=== PATIENT | female | born 1990 | race Caucasian/White ===

== ENCOUNTER 2017-08-27 17:38 | Emergency (ER) | payer OTHER ==
[2017-08-27] MEDS ORDERED: Ketorolac Tromethamine 30 MG/ML VIAL ONE (18:06)
[2017-08-27 18:33] LABS: BHCG - Serum Negative (NEGATIVE); Pregs Control Background? CLEAR/WHITE (CLR/WHITE); Pregs Control Bar Appear? YES (CONTROL BAR)
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
== END 2017-08-27 19:50 | disposition home or self-care (01) ==
LOC: SCSER 17:38
DX: S53.401A Unspecified sprain of right elbow, initial encounter (principal); Z87.891 Personal history of nicotine dependence; V87.8XXA Person injured in other specified noncollision transport accidents involving motor vehicle (traffic), initial encounter
CPT/HCPCS: 71045; 72170; 84703; 96372; J1885